=== PATIENT | male | born 1955 | race Caucasian/White ===

== ENCOUNTER 2020-10-29 00:54 | Day surgery (SDC) | payer MEDICARE, SELFPAY ==
[2020-10-16 12:40] VITALS: BMI 29.9
--- NOTE | 2020-10-28 12:07 | WPDANESEPPF ---
Anes - Initial Pre Proc Eval Procedure: Operation Date: 10/29/20 08:00 Proposed Procedures p Screening Colonoscopy - Cuong Arce MD Date/Time: 10/28/20 12:07 Surgeon: Cuong Arce MD Pre Op Diagnosis: hx of colon polyps Z86.010 Patient Data Age: 65 Gender: M Height: 1.88 m Weight: 106 kg Allergies Allergy/AdvReac Type Severity Reaction Status Date / Time amoxicillin Allergy Unknown Rash Verified 10/29/20 06:36 rivaroxaban Allergy Unknown Bleeding Verified 10/29/20 06:36 Home Medications Medication Instructions Recorded Confirmed Type aspirin 325 mg tablet 325 mg PO DAILY 01/05/19 10/29/20 History metoprolol tartrate 25 mg tablet 50 mg PO DAILY tablet 07/10/19 10/29/20 History atorvastatin 10 mg tablet 10 mg PO DAILY #90 tablet 06/20/20 10/29/20 Rx Patient hx anesthesia problems: none Family hx anesthesia problems: none PMFSH Past Medical History Medical History Afib Allergic rhinitis Anemia Essential (primary) hypertension Pure hypercholesterolemia Wears glasses Surgical History Surgical History Presence of right artificial knee joint S/P ablation operation for arrhythmia Family History Family History Father Malignant neoplasm of prostate Patient's father is in good health Sibling Patient's sister is in good health Patient's brother is in good health Social History Social History Smoking status: Never smoker Second hand tobacco smoke exposure: No Alcohol intake: current Drinks per week: 4 Alcohol use details: socially Substance use: never Substance use type: does not use Living arrangements: with family Gender identity (if verbalized by the patient): Male Spiritual care concerns: No Anes - Eval Final PreProcedure Day of Procedure 10/28/20 12:07 Patient weight: obese Heart: regular rate and rhythm Lungs: clear to auscultation and normal air movement Airway: Mallampati scale class II Neurological: alert and oriented Last oral intake: >/= 8 hours ASA classification: III Emergent: no Anesthetic plan: proceed Anesthesia type and monitoring: general GIVS and standard monitoring Informed Consent: The patient's anesthetic plan and its attendant risks and benefits were discussed with the patient/family/POA. Questions were solicited and answers provided to the satisfaction of the patient/family/POA.
--- NOTE | 2020-10-28 15:39 | PM.HPGS ---
History of Present Illness History of Present Illness Consent: Risks, benefits, and alternatives have been discussed and questions answered. Patient agrees to proceed with procedure. Chief complaint: hx of colon polyps Z86.010 Narrative: Michael Carbajal is a 65 year old male with a history of colon polyps here for colon cancer screening. His father had polyps and prostate cancer. Review of Systems Review of Systems: All systems reviewed & are unremarkable except as noted in HPI and below PMFSH Past Medical History Medical History Afib Allergic rhinitis Anemia Essential (primary) hypertension Pure hypercholesterolemia Wears glasses Surgical History Surgical History Presence of right artificial knee joint S/P ablation operation for arrhythmia Family History Family History Father Malignant neoplasm of prostate Patient's father is in good health Sibling Patient's sister is in good health Patient's brother is in good health Social History Social History Smoking status: Never smoker Second hand tobacco smoke exposure: No Alcohol intake: current Drinks per week: 4 Alcohol use details: socially Substance use: never Substance use type: does not use Living arrangements: with family Gender identity (if verbalized by the patient): Male Spiritual care concerns: No Meds Home Medications and Allergies Home Medications Medication Instructions Recorded Confirmed Type aspirin 325 mg tablet 325 mg PO DAILY 01/05/19 10/29/20 History metoprolol tartrate 25 mg tablet 50 mg PO DAILY tablet 07/10/19 10/29/20 History atorvastatin 10 mg tablet 10 mg PO DAILY #90 tablet 06/20/20 10/29/20 Rx Allergies Allergy/AdvReac Type Severity Reaction Status Date / Time amoxicillin Allergy Unknown Rash Verified 10/29/20 06:36 rivaroxaban Allergy Unknown Bleeding Verified 10/29/20 06:36 Exam Const: General: alert Orientation/consciousness: patient oriented x3 Resp: Auscultation: clear to auscultation bilaterally Cardio: Rhythm: regular rhythm GI: GI Palp: Yes Soft to palpation and No Tenderness to palpation present (GI) Neuro: General: patient oriented x3 Assessment and Plan Assessment and plan (1) Colon cancer screening: Code(s): Z12.11 - Encounter for screening for malignant neoplasm of colon Status: Acute Assessment and Plan: Colonoscopy with possible biopsy or polypectomy or cautery or injection of substances.
[2020-10-29 06:37] VITALS: BP 125/74; PULSE 96; RESP 18; TEMP 36.3; O2SAT 97
[2020-10-29] MEDS: LACTATED RINGERS 1,000 ML 150 ML IV CONT (06:40)
[2020-10-29 07:46] VITALS: BP 116/71; PULSE 83; RESP 27; O2SAT 95
[2020-10-29 07:56] VITALS: BP 120/70; PULSE 79; RESP 24; O2SAT 96
[2020-10-29 08:06] VITALS: BP 139/75; PULSE 80; RESP 22; O2SAT 96
== END 2020-10-29 08:15 | disposition home or self-care (01) ==
PROVIDERS: PCP Family Medicine; Visit Provider Internal Medicine Gastroenterology
PROC: 0DJD8ZZ Inspection of Lower Intestinal Tract, Via Natural or Artificial Opening Endoscopic (ICD-10-PCS; CPT 45378; principal; 2020-10-29 08:00)
DX: Z12.11 Encounter for screening for malignant neoplasm of colon (principal); D12.0 Benign neoplasm of cecum; K57.30 Diverticulosis of large intestine without perforation or abscess without bleeding; I48.91 Unspecified atrial fibrillation; I10 Essential (primary) hypertension; E78.00 Pure hypercholesterolemia, unspecified; D64.9 Anemia, unspecified; Z79.82 Long term (current) use of aspirin; E66.9 Obesity, unspecified; Z68.31 Body mass index [BMI] 31.0-31.9, adult
CPT/HCPCS: 45385; 88305; J2704; J7120

== ENCOUNTER → 2021-06-25 08:00 | Outpatient (CLI) | payer MEDICARE, SELFPAY ==
--- NOTE | ~2021-06-25 | XR_ITS ---
EXAMINATION: XR finger 3rd RT min 2V INDICATION: Right third finger pain and stiffness TECHNIQUE: Three views of the right third finger are obtained. COMPARISON: None available FINDINGS: There is mild osteoarthritis of the interphalangeal joints and metacarpophalangeal joint. T here is no fracture. The soft tissues are normal. IMPRESSION: 1. Mild osteoarthritis. Reviewed, dictated and finalized at location A. IMPRESSION: 1. Mild osteoarthritis.
--- NOTE | ~2021-06-25 | XR_ITS ---
EXAMINATION: XR hand RT 2V INDICATION: Right hand pain TECHNIQUE: Two views of the right hand are obtained. COMPARISON: None available FINDINGS: There is mild to moderate osteoarthritis involving multiple interphalangeal joints. No frac ture is identified. The soft tissues are normal. IMPRESSION: 1. 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 Reviewed, dictated and finalized at location A. IMPRESSION: 1. Mild to moderate polyarticular osteoarthritis involving multiple interphalan geal joints.
== END ==
PROVIDERS: PCP Family Medicine; Visit Provider Physician Assistant
DX: M19.041 Primary osteoarthritis, right hand (principal)
CPT/HCPCS: 73120; 73140

== ENCOUNTER 2021-07-29 14:21 | Outpatient (CLI) | payer MEDICARE, SELFPAY ==
--- NOTE | ~2021-07-29 | MR_ITS ---
EXAMINATION: MR brain IAC wo/w con DATE: 07/29/2021 15:33 INDICATION: Tinnitus. Sudden left-sided hearing loss. TECHNIQUE: Magnetic resonance imaging (MRI) of the brain, brainstem, and internal auditory canals was performed without and with 20 mL MultiHance intravenous contrast. COMPARISON: None. FINDINGS: There are scattered areas of nonspecific increased T2-weighted signal intensity in the cere bral white matter, which is within normal limits for the patient's age. In the right posterior midbra in, there is a 10 mm mass of increased T2-weighted signal intensity with mild enlargement of the righ t posterior midbrain. No contrast enhancement. There is no acute ischemic infarct or intracranial hem orrhage. The ventricles are normal in size. The orbits are normal. There is mild mucosal thickening i n the paranasal sinuses. The internal auditory canals and inner and middle ears are normal. There is a trace right mastoid effusion. IMPRESSION: 1. 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 Reviewed, dictated and finalized at location B. IMPRESSION: 1. 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
[2021-07-29 14:59] LABS: Estimated Glomerular Filt Rate > 60
== END 2021-07-29 14:22 | disposition home or self-care (01) ==
PROVIDERS: PCP Family Medicine; Visit Provider Otolaryngology
DX: H93.19 Tinnitus, unspecified ear (principal)
CPT/HCPCS: 70553; A9577

== ENCOUNTER 2022-08-19 13:09 | Outpatient (RCR) | payer MEDICARE, SELFPAY ==
--- NOTE | 2022-08-09 09:14 | PCPTNOTE ---
Patient called & cancelled scheduled appointment this date due to being sick
--- NOTE | 2022-08-19 14:13 | PTOPEVDC ---
Assessment and note entered by Patel Natarajan, PT Thank you for referring Michael Carbajal to [facility].? An evaluation has been completed. No further treatment is needed. Evaluation Information Assessment Status Evaluation Diagnosis Aural Vertigo Onset 4 months ago Subjective Information Patient reports having hearing issues including decreased hearing and tinnitus for 25 years. Recently found out he has a tumor and 4 months ago was just looking up after looking up and having a violent episode of dizziness with N/V. Patient has had multiple other episodes since then none as bad as the first incident, but two resulting in N /V. Patient has been trying to keep track of any triggers and cannot come up with any. (Although it does seem like quick unexpected motions might being doing something.). Reported Pain Level Pain Score 0: Self Report Assessment PT Clinical Summary Michael is a 67 year old male coming into the clinic with a diagnosis of Aural Hearing. The patient had negative Astatula-Hallpike to L and R, no nystagmus with any visual testing and has acceptable balance tests only having loss of balance with eyes closed single limb stance and closed eyes tandem stance. Unable to provoke any dizziness at this time. Patient has sounds like VNG test planned at [place] although no date is set in stone . Recommend no further physical therapy at this time. Plan of Care PT Services Indicated No Treatment Frequency and Discharged from skilled physical therapy. Duration
== END 2022-08-20 14:17 | disposition home or self-care (01) ==
LOC: ANHPT 13:09
PROVIDERS: PCP Family Medicine; Visit Provider Otolaryngology
DX: H81.319 Aural vertigo, unspecified ear (principal); H93.12 Tinnitus, left ear; H90.2 Conductive hearing loss, unspecified
CPT/HCPCS: 97161

== ENCOUNTER 2023-09-18 09:24 | Emergency (ER) | payer MEDICARE, SELFPAY ==
--- NOTE | ~2023-09-18 | XR_ITS ---
Clinical Indication: Syncopal AP and lateral views of the chest: Comparison: 03/04/2015 Findings: The lungs are clear, without evidence of focal consolidation or pleural effusion. Cardiome diastinal silhouette is within normal limits. Bones and soft tissues are unremarkable. Impression: Normal chest. Reviewed, dictated and finalized at location . Impression: Normal chest.
--- NOTE | ~2023-09-18 | CT_ITS ---
Non-contrast Head CT History: Syncope Technique: Axial non-contrast imaging of the brain was performed. Dose reduction technique was used on this scan by utilizing automated exposure control and iterative reconstruction technique. The dose -length product (DLP) was 681.00 mGy-cm. Findings: There is no evidence of intracranial hemorrhage, mass lesion, or acute infarct. Brain par enchyma appears normal. The ventricles and subarachnoid spaces are normal in size. The calvarium ap pears normal. The visualized paranasal sinuses and mastoid air cells are clear. Impression: No significant abnormality seen. Reviewed, dictated and finalized at location . Impression: No significant abnormality seen.
--- NOTE | ~2023-09-18 | CT_ITS ---
Noncontrast CT scan of the cervical spine Technique: Multiple contiguous axial [address] images of the cervical spine were obtained and rec onstructed in 2D sagittal and coronal planes on the acquisition scanner. Dose reduction technique was used on this scan by utilizing automated exposure control, adjustment of the mA and/or kV according to patient size. The dose-length product (DLP) was 481.16 mGy-cm. Clinical History: Pain Findings: No fractures or dislocations. There are mild degenerative disc changes, especially at C4-C 5, C5-C6, and C6-C7. There are mild disc osteophyte complexes at C4-C5, C5-C6, and C6-C7. No preverte bral soft tissue swelling. Impression: No fracture or subluxation of the cervical spine. Mild degenerative change. Reviewed, dictated and finalized at [facility]. Impression: No fracture or subluxation of the cervical spine. Mild degenerative change.
--- NOTE | ~2023-09-18 | XR_ITS ---
Left wrist Technique: PA, oblique, lateral, and ulnar deviation views were obtained. Clinical History: Pain Findings: No acute fracture or dislocation is seen. Osseous alignment is anatomic. Joint spaces are p reserved. Soft tissues are unremarkable. Impression: Unremarkable left wrist radiographs. Reviewed, dictated and finalized at location . Impression: Unremarkable left wrist radiographs.
[2023-09-18 09:19] VITALS: BP 154/83; PULSE 60; RESP 16; TEMP 36.6; O2SAT 99
--- NOTE | 2023-09-18 09:34 | ECG_ITS ---
Test Date: 2023-09-18 09:27:50 Measurements Intervals [place] Rate: 60 P: 6 LA: 157 QRS: 20 QRSD: 102 T: 16 QT: 408 QTc: 408 Interpretive Statements SINUS RHYTHM POSSIBLE LEFT VENTRICULAR HYPERTROPHY [VOLTAGE CRITERIA PLUS LAE OR QRS WIDENING] BORDERLINE ECG No previous ECG available for comparison Electronically Signed On 09-19-2023 14:48:07 CDT by Nirmal Kwon M.D.
[2023-09-18 09:52] LABS: Basophils Absolute Auto 0.1 K/mm3 (0.0-0.1); Basophils Percent Auto 0.8 % (0.2-1.2); Eosinophils Percent Auto 0.5 % (0-4.4); Hematocrit 38.8 % (42.0-52.0); Hemoglobin 13.1 g/dL (14.0-18.0); Immature Granulocyte Absolute 0.05 K/mm3 (0.00-0.031); Immature Granulocyte Percent A 0.6 % (0-0.5); Lymphocytes Absolute Auto 1.93 K/mm3 (0.9-3.2); Lymphocytes Percent Auto 21.9 % (18.3-44.2); Mean Corpuscular HGB Conc 33.8 g/dl (32-36); Mean Corpuscular Hemoglobin 30.7 pg (26-34); Mean Corpuscular Volume 90.9 fl (80-100); Mean Platelet Volume 9.8 fl (7.4-10.4); Monocytes Absolute Auto 0.8 K/mm3 (0.1-0.6); Monocytes Percent Auto 8.7 % (2.6-8.5); Neutrophils Percent Auto 67.5 % (45.5-73.1); Platelet Count Result 339 k/mm3 (150-375); Red Blood Count 4.27 M/mm3 (4.6-6.20); Red Cell Distribution Width 13.1 % (11.5-14.5); White Blood Count 8.8 K/mm3 (4.5-10.0)
[2023-09-18 10:05] LABS: Alanine Aminotransferase 34 U/L (6-50); Alkaline Phosphatase 75 U/L (38-126); Anion Gap 9 mmol/L (4-12); Aspartate Amino Transferase 29 U/L (17-59); Bilirubin,Total 0.7 mg/dL (0.2-1.3); Blood Urea Nitrogen 22 mg/dL (9-20); Calcium 9.2 mg/dL (8.4-10.2); Carbon Dioxide 26 mmol/L (22-30); Chloride 105 mmol/L (98-107); Estimated CRCL calculation 84 ml/min; Estimated Glomerular Filt Rate > 60; Glucose 114 mg/dL (65-110); Potassium 3.3 mmol/L (3.4-5.0); Sodium 140 mmol/L (137-145)
[2023-09-18 11:54] VITALS: BP 137/83; PULSE 60; RESP 15; O2SAT 94
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
== END 2023-09-18 12:38 | disposition home or self-care (01) ==
PROVIDERS: Emergency Provider Emergency Medicine; PCP Family Medicine
DX: S06.0X0A Concussion without loss of consciousness, initial encounter (principal); S63.502A Unspecified sprain of left wrist, initial encounter; S00.81XA Abrasion of other part of head, initial encounter; S00.31XA Abrasion of nose, initial encounter; S40.812A Abrasion of left upper arm, initial encounter; S40.811A Abrasion of right upper arm, initial encounter; H81.09 Meniere's disease, unspecified ear; I48.91 Unspecified atrial fibrillation; I10 Essential (primary) hypertension; E78.00 Pure hypercholesterolemia, unspecified; D64.9 Anemia, unspecified; Z96.651 Presence of right artificial knee joint; R94.31 Abnormal electrocardiogram [ECG] [EKG]; Z79.811 Long term (current) use of aromatase inhibitors; Z79.82 Long term (current) use of aspirin; Z79.899 Other long term (current) drug therapy; V18.4XXA Pedal cycle driver injured in noncollision transport accident in traffic accident, initial encounter; Y93.55 Activity, bike riding
CPT/HCPCS: 36415; 70450; 71046; 72125; 73110; 80053; 85025; 93005; 99284

== ENCOUNTER 2024-10-18 08:35 | Emergency (ER) | payer MEDICARE, SELFPAY ==
[2024-10-18 09:10] VITALS: BP 144/99; PULSE 70; RESP 16; TEMP 36.6; O2SAT 97
--- NOTE | 2024-10-18 10:12 | ED.BACK ---
HPI - Back Pain/Injury General Chief Complaint: Back Pain/Injury Stated Complaint: Back Pain Time Seen by Provider: 10/18/24 10:12 Source: patient Mode of arrival: ambulatory Limitations: no limitations History of Present Illness HPI Narrative: 69 eye male presented for complaint of pain across the lower back for 2 weeks. Denies known injury. He says he did lift a headboard into a truck prior to the onset but denies feeling any pain at the time, and says this is not unusual activity for him. Pain is worse when changing positions from sitting to standing. Rates 08/23. Has been taking ibuprofen without improvement. Last night he took his 's muscle relaxer, also denies improvement. Denies pain radiating into the hips or legs, numbness, tingling, weakness of the lower extremities, or change in gait, saddle paresthesia or loss of bowel or bladder. Related Data Home Medications ?Medication ?Instructions ?Recorded ?Confirmed ?Last Taken ?Type aspirin 325 mg tablet 325 mg PO DAILY 01/05/19 10/18/24 Unknown History metoprolol tartrate 25 mg tablet 50 mg PO DAILY 07/10/19 10/18/24 Unknown History anastrozole 1 mg tablet mg 10/18/24 Unknown History metformin 500 mg tablet,extended mg PO 10/18/24 Unknown History release 24 hr rosuvastatin 5 mg tablet mg 10/18/24 Unknown History triamterene 37.5 cap 10/18/24 Unknown History mg-hydrochlorothiazide 25 mg capsule Allergies Allergy/AdvReac Type Severity Reaction Status Date / Time amoxicillin Allergy Unknown Rash Verified 10/18/24 09:31 rivaroxaban Allergy Unknown Bleeding Verified 10/18/24 09:31 Review of Systems Review of Systems: CONSTITUTIONAL: Denies body aches, fever, chills EYES: Denies visual changes CARDIOVASCULAR: Denies chest pain, palpitations, or edema. RESPIRATORY: Denies cough or dyspnea. GASTROINTESTINAL: Denies abdominal pain, nausea, vomiting, or diarrhea. SKIN: Denies rash, itching, or wounds. MUSCULOSKELETAL: reports back pain NEUROLOGIC: Denies headache, numbness, tingling, or weakness. All systems reviewed & are unremarkable except as noted in HPI and below PMFSH Past Medical History Medical History Anemia Afib Wears glasses Allergic rhinitis Essential (primary) hypertension Pure hypercholesterolemia Surgical History Surgical History S/P ablation operation for arrhythmia Presence of right artificial knee joint Family History Family History Father Malignant neoplasm of prostate Patient's father is in good health Sibling Patient's sister is in good health Patient's brother is in good health Social History Social History Smoking status: Never smoker Second hand tobacco smoke exposure: No Alcohol intake: current Drinks per week: 4 Alcohol use details: socially Substance use: never Substance use type: does not use Living arrangements: with family Occupation/Education: occupation Gender identity (if verbalized by the patient): Male Sexual Orientation (if Verbalized by the Patient): Straight or Heterosexual Spiritual care concerns: No Comments At time of signature, I have reviewed and agree with nursing past medical, surgical, social and family history unless otherwise noted. Please see nursing chart for further information. There is no relevant family history pertinent to the presenting complaint Exam Narrative: GENERAL: Well-appearing, well-nourished, and in no acute distress. NECK: Supple. full ROM CHEST: Speaks in full sentences. No respiratory distress. HEART: Regular rate and rhythm. Normal and equal peripheral pulses. MUSC: No Vertebral point tenderness. Nontender paraspinal muscles. Mild tenderness to bilateral hips with deep palpation c/w SI joints. BLEs with normal strength and sensation, normal range of motion, No open wounds, alignment normal, pulse palpable and equal bilaterally, skin warm, dry, pink. Capillary refill less than 3 seconds. Gait steady. SKIN: Warm, dry, no rash. NEURO: Alert and oriented x3. Course Course Emergency Course: Patient is aware of diagnosis, understands and agrees to treatment plan. Anticipatory guidance given. Patient agrees to follow-up as directed and is aware of reasons to seek care at the emergency department. Portions of this record may have been created with voice recognition software Level of Care: Express Care Visit Vital Signs Vital signs: Vital Signs Temperature 97.8 F 10/18/24 09:10 Pulse Rate 70 10/18/24 09:10 Respiratory Rate 16 10/18/24 09:10 Blood Pressure 144/99 H 10/18/24 09:10 Pulse Oximetry 97 10/18/24 09:10 Oxygen Delivery Room Air 10/18/24 09:10 Temperature 97.8 F 10/18/24 09:10 Pulse Rate 70 10/18/24 09:10 Respiratory Rate 16 10/18/24 09:10 Blood Pressure 144/99 H 10/18/24 09:10 Pulse Oximetry 97 10/18/24 09:10 Oxygen Delivery Room Air 10/18/24 09:10 Reviewed MDM - Back Pain/Injury MDM Narrative Medical decision making narrative: Pt with pain across low semaj; Xray was ordered, however staff was unable to perform the test within 45 minutes of ordering, so pt elected to leave and f/u with pcp Advised supportive measures and s/s to go to the ER. Pt is stable and appropriate for outpt treatment and follow up with pcp. Differential Diagnosis Differential diagnosis: Likely lumbar radiculopathy, sciatica, strain of lumbar region, renal colic, pyelonephritis and discitis Discharge Plan Discharge Clinical Impression: Low back pain Patient Disposition: Home Condition: Stable Instructions: Acute Low Back Pain (ED) Additional Instructions: Avoid lifting. pushing. pulling, or anything that worsens the pain. Walking and other gentle exercising several times a week has been shown to improve back pain; bed rest is not recommended. Take Tylenol 1000mg every 8 hours Take muscle relaxers every 8 hours as needed for muscle spasm- do not drive or make any important decisions while on this medication for it can make you drowsy. Over the counter pain cream like icy/hot or biofreeze, or Salon pas/lidocaine 4% patch. You may apply heat or cold to the area as needed. please go to ER If you experience any worsening pain, swelling, numbness, weakness, problems with bladder or bowel function, weakness or loss of feeling in one or both of your legs, or any other serious concerns. Please follow up with your Primary Care Doctor within 48-72 hours - call for an appointment. Patient Language: Georgian Prescriptions: New cyclobenzaprine 10 mg tablet 10 mg PO TID PRN (Reason: muscle spasm) Qty: 12 0RF methylprednisolone [Medrol ([place])] 4 mg tablets,dose pack See Rx Instructions .ROUTE .COMPLEX Qty: 21 0RF Rx Instructions: orally per package directions No Action anastrozole 1 mg tablet triamterene-hydrochlorothiazid 37.5-25 mg capsule metformin 500 mg tablet extended release 24 hr PO rosuvastatin 5 mg tablet aspirin 325 mg tablet 325 mg PO DAILY metoprolol tartrate 25 mg tablet 50 mg PO DAILY atorvastatin [Lipitor] 10 mg tablet 10 mg PO DAILY Qty: 90 1RF Follow-up/Referrals: Demarcus Colby MD [Primary Care Provider, Family Practice] Time of Disposition: 11:04
== END 2024-10-18 11:07 | disposition home or self-care (01) ==
PROVIDERS: Emergency Provider Nurse Practitioner Family; PCP Family Medicine
DX: M54.50 Low back pain, unspecified (principal); I48.91 Unspecified atrial fibrillation; I10 Essential (primary) hypertension; E78.00 Pure hypercholesterolemia, unspecified; Z96.651 Presence of right artificial knee joint; Z79.82 Long term (current) use of aspirin
CPT/HCPCS: 99213; G0463

== ENCOUNTER 2024-10-19 08:34 | Outpatient (CLI) | payer MEDICARE, SELFPAY ==
--- NOTE | ~2024-10-19 | XR_ITS ---
EXAMINATION: XR lumbar spine 2-3V DATE: 10/19/2024 09:26 INDICATION: Low back pain TECHNIQUE: 3 images of the lumbar spine were obtained COMPARISON: None. FINDINGS: There is bowel gas and stool projecting over the pelvis which limits evaluation. There are a few less than 1.0 cm calcifications projecting over the pelvis which may represent phleboliths, however, a distal ureteral stone or bladder stone or possible. No compression fracture in the lumbar spine. Alignment is within normal limits in the lumbar spine. Mild degenerative change in the mid and lower lumbar facet joints. IMPRESSION: 1. Mild degenerative change in the mid and lower lumbar spine. If symptoms persist or worsen, consider an MRI of the lumbar spine for further assessment. Reviewed, dictated and finalized at location Q.
== END 2024-10-19 08:35 | disposition home or self-care (01) ==
PROVIDERS: PCP Family Medicine; Visit Provider Physician Assistant Medical
DX: M51.369 Other intervertebral disc degeneration, lumbar region without mention of lumbar back pain or lower extremity pain (principal)
CPT/HCPCS: 72100

== ENCOUNTER 2024-11-01 11:33 | Emergency (ER) | payer MEDICARE, SELFPAY ==
--- NOTE | ~2024-11-01 | CT_ITS ---
EXAMINATION: CT lumbar spine wo con DATE: 11/01/2024 13:39 INDICATION: Low back pain radiating down the right leg TECHNIQUE: Computed tomography (CT) of the lumbar spine was performed without intravenous contrast. Automated exposure control and iterative reconstruction technique were employed. The dose-length product was 1349.31 mGy-cm. COMPARISON: Lumbar spine radiographs dated 10/19/2024 FINDINGS: 12 degrees lumbar levoscoliosis. Sagittal alignment is normal. Schmorl's nodes along the inferior endplate of L2 in the superior endplates of L5 and S1. Vertebral body heights are otherwise normal. No acute fracture. Mild disc height loss at L4-L5 and mild right-sided disc height loss at L2-L3 and L3-L4. Paravertebral soft tissues are unremarkable. The following disc levels are specifically discussed: T11-T12: The disc does not extend beyond the endplate margin. There is mild bilateral facet joint osteoarthritis. There is no neural foraminal stenosis. There is no central canal stenosis. T12-L1: The disc does not extend beyond the endplate margin. There is mild bilateral facet joint osteoarthritis. There is no neural foraminal stenosis. There is no central canal stenosis. L1-L2: Disc is mildly bulging. There is mild bilateral facet joint osteoarthritis. There is mild bilateral neural foraminal stenosis. There is no central canal stenosis. L2-L3: Disc is mildly bulging. There is mild bilateral facet joint osteoarthritis. There is moderate bilateral neural foraminal stenosis. There is mild central canal stenosis. L3-L4: Disc is bulging. There is mild bilateral facet joint osteoarthritis. There is moderate right and mild to moderate left neural foraminal stenosis. There is mild central canal stenosis. L4-L5: Disc is bulging. There is mild bilateral facet joint osteoarthritis. There is mild right and mild to moderate left neural foraminal stenosis. There is mild central canal stenosis. L5-S1: Disc is mildly bulging. There is moderate left and severe right facet joint osteoarthritis. There is mild left and minimal right neural foraminal stenosis. There is no central canal stenosis. IMPRESSION: 1. 12 degrees lumbar levoscoliosis with mild spondylosis. Reviewed, dictated and finalized at location A.
[2024-11-01 11:44] VITALS: BP 158/101; PULSE 65; RESP 16; TEMP 36.6; O2SAT 96
--- OUTSIDE RECORDS SUMMARY | 2024-11-01 11:57 | XMS_ITS | Clinical Summary ---
Author Organization [facility] Address [address] [place] [address] Care Team Providers Care Hotel Concierge Name Role Phone Unavailable Primary Care Provider Unavailabl e Source Comments [facility],non-owned Affiliates and Associated Physician Practices is amultiple site organization consisting of ambulatory clinics and hospital sitesin [place], [place] and [place]. This disclosure is being madepursuant to the Care Everywhere program and may not contain all information available regarding this patient. Last updated 17.[facility] Social & Loyal Allergies No known active allergies Immunizations Immunization Administration Dates Next Due INFLUENZA VACCINE, QUADR. (F LUZONE; FLULAVAL; FLUARIX; AFLURIA QUADRIVALENT; 6MO+), 0.5 ML (IIV4) 12/14/2018 Social History Tobacco Use Types Packs/Day Years Used Date Smoking Tobacco: Never Assessed Sex and Gender Information Value Date Recorded Sex Assigned at Not on file Legal Sex Male 9:48 AM CDT Gender Identity Not on file Sexual Orientation Not on file Plan of Treatment Health Maintenance Due Date Last Done Comments COLOGUARD (AGES 45-75) - COL ON CA SCREENING 1955 COLON MONITORING 1955 COLONOSCOPY - COLON CA SCREENING 1955 CT COLONOGRAPHY - COLON CA SCREENING 1955 Colorectal Cancer Screening 1955 FIT - COLON CA SCREENING 1955 FLEX SIG - COLON CA SCREENING 1955 LIPID TESTING 1955 HEPATITIS C SCREENING 05/08/1973 DTAP/TDAP/TD VACCINES (1 - Tdap) 05/12/1974 PNEUMOCOCCAL VACCINE 50+ (1 of 1 - PCV) 05/12/2005 ZOSTER VACCINE (1 of 2) 05/12/2005 DEPRESSION SCREENING 02/15/2024 COVID-19 VACCINE (1 - 2023-2 5 season) 2024 INFLUENZA VACCINE (#1) 2024 12/14/2018 Respiratory Syncytial Virus (RSV) Vaccine Pt: or over 60 yrs (1 - 1-dose 75+ series) 05/12/2030 HEPATITIS B VACCINE Aged Out No longe r eligible based on patient's age to complete this topic HIB VACCINE Aged Out No longer eligi ble based on patient's age to complete this topic HPV VACCINE Aged Out No longer eligi ble based on patient's age to complete this topic MENINGOCOCCAL (Group B) VACC INE SHARED DECISION-MAKING Aged Out No longer eligibl e based on patient's age to complete this topic MENINGOCOCCAL GROUPS A/C/Y/W VACCINE Aged Out No longer eligible b ased on patient's age to complete this [place] [address] [address] [facility] [address] [place] [address] [address] MEDICARE
--- OUTSIDE RECORDS SUMMARY | 2024-11-01 11:57 | XMS_ITS | Clinical Summary ---
Author Organization [facility] [address] Address [address] [place] [address] Care Team Providers Care Workers Compensation Manager Name Role Phone Demarcus Colby MD Primary Care Provider Demarcus Guerrero MD Unavailable [phone] Allergies Active Allergy Reactions Criticality Noted Date Comments Amoxicillin Rash Medium 07/12/2018 Rivaroxaban Other (See comments) High 07/12/2018 Had diffuse bleeding after knee replacement surgery. Had diffuse bleeding after knee replacement surgery. Medications atorvastatin (LIPITOR) 10 mg tablet TK 1 T PO QD 2 06/22/19 19 Active metoprolol (LOPRESSOR) 50 mg tablet Take 1 tablet (50 mg total) by mouth 2 (two) times a day 60 tablet 11 08/24/19 19 Active aspirin 325 mg enteric coated tablet Take 1 tablet (325 mg total) by mouth daily 30 tablet 11 08/24/19 19 Active Additional Information Patient taking differently: 81 mgoral Daily, Reported on 09/09/2021 ondansetron ODT (ZOFRAN-ODT) 4 mg disintegrating tablet Take 1 tablet (4 mg total) by mouth every 8 (eight) hours as needed for nausea or vomiting 20 tablet 1 02/04/20 23 Active LORazepam (Ativan) 1 mg tablet Take 1 tablet (1 mg total) by mouth every 8 (eight) hours as needed (vertigo) 30 tablet 3 09/21/19 24 Active triamterene-hydroC HLOROthiazide 37.5-25 mg per tablet/capsule Take 1 tablet/capsule by mouth daily 30 tablet/capsu le 11 01/31/20 24 025 Active rosuvastatin (CRESTOR) 5 mg tablet TAKE 1 TABLET BY MOUTH EVERY DAY FOR CHOLESTEROL 03/27/19 25 Active betahistine Take 1 capsule (8 mg total) by mouth 3 (three) times a day 90 capsule 11 07/19/19 25 026 Active Active Problems Problem Noted Date Diagnosed Date 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 [facility] [address] [place] [address] Asymmetrical sensorineural hearing loss (Primary Dx); Pressure sensation in both ears 08/14/2024 8:00 AM CDT Office Visit [facility] Otolaryngology [address] [place] [address] JuliennewJoselo MD Meniere's disease of left ear (Primary Dx); Asymmetrical sensorineural hearing loss from Last 3 Months Immunizations Immunization Administration Dates Next Due Influenza, Quadrivalent, Hig h Dose, Preservative Free, Intrr 11/15/2020 Influenza, Quadrivalent, Spl it, Preservative Free, Intramuscular 12/05/2019,12/14/2018,12/09/2017,12/08 Influenza, Trivalent, IM (MDV) 01/01/2019 Influenza, Trivalent, Preser vative Free, Intramuscular 12/31/2015 Pneumococcal Polysaccharide PPV23 11/15/2020 Tdap 07/06/2017,07/05/2017 ZOSTER Recombinant 01/14/2021,11/15/2020 Surgical History Surgery Date Site/Laterality Comments TOTAL KNEE ARTHROPLASTY 11/14/2017 - 12/14/2017 KNEE SURGERY Bilateral 2 on each side CARDIAC ELECTROPHYSIOLOGY ST UDY AND ABLATION COLONOSCOPY 2 years Medical History Medical History Date Comments Hypertension Hyperlipidemia Glioma (HCC) Atrial fibrillation (HCC) Tinnitus 20+ years HL (hearing loss) 20+ years Ear problems 20+ years Family History Medical History Relation Name Comments No Known Problems Brother Cancer Father Michael Cancer Mother Lizett Diabetes Mother Lizett Cancer Paternal Grandfather Michael No Known Problems Sister 1 No Known Problems Sister 2 Relation Name Status Comments Brother Alive Father Michael (Age 80) Mother Lizett (Age 66) Paternal Grandfather Michael Sister 1 Alive Sister 2 Alive Social History Tobacco Use Types Packs/Day Years Used Date Smoking Tobacco: Never Smokeless Tobacco: Never Tobacco Cessation:Counseling Given: Not Answered Alcohol Use Standard Drinks/Week Comments Yes 7 (1 standard drink = 0.6 oz pur e alcohol) AUDIT-C Answer Date Recorded Q1: How often do you have a drink containing alc ohol? 2-4 times a month 09/09/2021 Q2: How many drinks containi ng alcohol do you have on a typical day when you are drinking? 3 or 4 09/09/2021 Q3: How often do you have si x or more drinks on one occasion? Monthly 09/09/2021 Sex and Gender Information Value Date Recorded Sex Assigned at Not on file Legal Sex Male 2:15 PM AREA CLEANER Gender Identity Not on file Sexual Orientation Not on file Obstetrics History Last Filed Vital Signs Vital Sign Reading Time Taken Comments Blood Pressure 146/90 04/16/2022 8:50 AM AREA CLEANER Pulse 59 04/16/2022 8:50 AM AREA CLEANER Temperature - - Respiratory Rate - - Oxygen Saturation 96% 09/02/2021 9:59 AM CDT Inhaled Oxygen Concentration - - Weight 107.5 kg (237 lb) 04/16/2022 8:50 AM AREA CLEANER Height 188 cm (6' 2) 09/09/2021 8:41 AM CDT Body Mass Index 30.43 09/09/2021 8:41 AM CDT Plan of Treatment Health Maintenance Due Date Last Done Comments Colon Cancer Screening-Colonoscopy 1955 Depression Screening 1955 Fall Risk Assessment 1955 Hepatitis C Screening 1955 Prostate Cancer Screening-PSA 1955 Hepatitis B Screening 05/12/1973 Well Visit 65+ 05/12/2020 Pneumococcal vaccine 65+ (2 of 2 - PCV) 11/15/2021 11/15/2020 Covid-19 Vaccine (2024-2 6 season) 2024 07/20/2021, 11/14/2020, 05/06/2020, Additional history exists Influenza Vaccine (#1) 2024 , 12/05/2019, 01/01/2019, Additional history exists DTaP/Tdap/Td Vaccine (3 - Td or Tdap) 07/07/2027 07/06/2017, 07/05/2017 Zoster Vaccine Completed 01/14/2021, 11/15/2020 Procedures Procedure Name Priority Date/Time Associated Diagnosis Comments AUDBASE RESULTS 08/14/2024 7:42 AM CDT from Last 3 Months Results * AudBase Results (08/14/2024 7:42 AM CDT) Provider Scanning AUDIOLOGY SERVICES ORDERABLES Final Result from Last 3 Months Insurance [facility] [place] [address] MEDICARE [facility] Care Teams Workers Compensation Manager Relationship Specialty Start Date End Date Demarcus Colby MD [address] [facility] [address] [place], [place] [id number] PCP - General Family Medicine 05/22/18 Demarcus Guerrero MD [address] [address] Radiation Oncologist Radiation Oncology 09/02/21
--- OUTSIDE RECORDS SUMMARY | 2024-11-01 11:57 | XMS_ITS | Clinical Summary ---
Author Organization [facility] Address [address] [facility] [place] [address] Phone Care Team Providers Care Carrier Blower Name Role Phone Demarcus Colby MD Primary Care Provider [phone] Allergies Active Allergy Reactions Criticality Noted Date Comments Amoxicillin Rash Medium 07/12/2018 Medications aspirin (Florencia Low Dose Aspirin) 81 mg Tablet, Delayed Release (E.C.) Take 1 Tablet (81 mg) by mouth daily. 30 Tablet 08/27/2021 Active atorvastatin (LIPITOR) 10 mg tablet TAKE 1 TABLET(10 MG) BY MOUTH DAILY WITH SUPPER 90 Tablet 08/31/2023 Active LORazepam (ATIVAN) 1 mg tablet Take 1 mg by mouth. 09/21/2023 Active metoprolol tartrate (LOPRESSOR) 50 mg tablet TAKE 1 TABLET(50 MG) BY MOUTH TWICE DAILY 180 Tablet 3 02/24/2024 Active atorvastatin (LIPITOR) 10 mg tablet TAKE 1 TABLET(10 MG) BY MOUTH DAILY 90 Tablet 3 02/24/2024 Active Active Problems Patient Care Coordination No te Formatting of this note migh t be different from the original. Edgar Vazquez MD-[facility] Heart and Vascular @ Jin De Paz DNP--EP MARICRUZ ([facility] Heart and Vascular @ ) Problem Noted Date Diagnosed Date PAF (paroxysmal atrial fibrillation) Encounters Date Type Department Care Team Description 10/23/2024 External Device Data STL ABSTRACTION Provider, Abstract from Last 3 Months Immunizations Immunization Administration Dates Next Due Influenza Seasonal Unspecified Formulation IM Family History Medical History Relation Name Comments No Known Problems Brother Cancer Father Cancer Mother Diabetes Mother No Known Problems Sister 1 No Known Problems Sister 2 Relation Name Status Comments Brother Alive Father Mother Sister 1 Alive Sister 2 Alive Social History Tobacco Use Types Packs/Day Years Used Date Smoking Tobacco: Never Smokeless Tobacco: Never Tobacco Cessation:Counseling Given: Not Answered Alcohol Use Standard Drinks/Week Comments Yes 0 (1 standard drink = 0.6 oz pur e alcohol) socially Sex and Gender Information Value Date Recorded Sex Assigned at Not on file Legal Sex Male 3:13 PM CDT Gender Identity Not on file Sexual Orientation Not on file Last Filed Vital Signs Vital Sign Reading Time Taken Comments Blood Pressure 130/72 02/09/2024 8:08 AM BALL MILL MIXER Pulse 63 02/09/2024 8:08 AM BALL MILL MIXER Temperature 36.2 C (97.1 F) 08/26/2020 10:59 AM CDT Respiratory Rate 16 04/08/2021 3:35 PM BALL MILL MIXER Oxygen Saturation 95% 02/09/2024 8:08 AM BALL MILL MIXER Inhaled Oxygen Concentration - - Weight 111.6 kg (246 lb) 02/09/2024 8:08 AM BALL MILL MIXER Height 188 cm (6' 2) 02/09/2024 8:08 AM BALL MILL MIXER Body Mass Index 31.58 02/09/2024 8:08 AM BALL MILL MIXER Plan of Treatment Upcoming Encounters Date Type Department Care Team (Late st Contact Info) Description 02/21/2025 8:00 AM BALL MILL MIXER Office Visit [facility] HEART AND VASCULAR EP AT [address] [place] [address] Jin De Paz, [address] [place] [address] Health Maintenance Due Date Last Done Comments Pre-Diabetes and Diabetes Screening 1955 COLORECTAL SCREENING 05/12/2000 Colorectal Cancer Screening 05/12/2000 FIT-DNA Q 3 years 05/12/2000 FIT/FOBT Q 1 year 05/12/2000 Flex Sig/CT Colonography Q 5 years 05/12/2000 PNEUMOCOCCAL VACCINE 50+ YEA RS (2 of 2 - PCV) 11/15/2021 11/15/2020 INFLUENZA VACCINE (#1) 2024 , 12/05/2019, 01/01/2019, Additional history exists DTAP/TDAP/TD VACCINES (3 - T d or Tdap) 07/07/2027 07/06/2017, 07/05/2017 RSV VACCINE (60+ or ) (1 - 1-dose 75+ series) 05/12/2030 ZOSTER VACCINE Completed 01/14/2021, 11/15/2020 Insurance MEDICARE PART A AND B [facility] [id number] Advance Directives For more information, please contact: [phone] * Full Code (Latest Code Status on File) Date Activated Date Inactivated Comments 01/31/2019 5:38 PM 02/01/2019 10:33 AM * Full Code Date Activated Date Inactivated Comments 01/31/2019 12:26 PM 01/31/2019 5:38 PM Care Teams Carrier Blower Relationship Specialty Start Date End Date Demarcus Colby MD [address] [facility] [address] [place] [address] PCP - General Family Practice 09/08/18
--- OUTSIDE RECORDS SUMMARY | 2024-11-01 11:57 | XMS_ITS | Clinical Summary ---
Author Organization [facility] Address [facility] [place] [address] Care Team Providers Care Fly Tier Name Role Phone Unavailable Primary Care Provider Unavailabl e Social History Tobacco Use Types Packs/Day Years Used Date Smoking Tobacco: Never Assessed Sex and Gender Information Value Date Recorded Sex Assigned at Not on file Legal Sex Male 6:49 PM CDT Gender Identity Not on file Sexual Orientation Not on file Plan of Treatment Health Maintenance Due Date Last Done Comments Colorectal Cancer Screening Colonoscopy (10 Years) 1955 Hepatitis C 05/12/1973 DTaP, Tdap and Td Vaccines ( 1 - Tdap) 05/12/1974 Pneumococcal Vaccine: 50+ Ye ars (1 of 1 - PCV) 05/12/2005 Zoster Vaccines (1 of 2) 05/12/2005 COVID-19 Vaccine (1 - 2023-2 5 season) 2024 RSV Immunization or 60+ Years (1 - 1-dose 75+ series) 05/12/2030 Meningococcal B Vaccine Aged Out No l onger eligible based on patient's age to complete this topic Meningococcal Vaccine Aged Out No annia santana eligible based on patient's age to complete this topic RSV Immunizations Under 20 Months Aged Out No longer eligible based on patient's age to complete this topic
[2024-11-01 13:18] VITALS: BP 168/97; PULSE 64; RESP 17; O2SAT 97
[2024-11-01 13:31] VITALS: BP 161/97; PULSE 73; RESP 18; O2SAT 94
--- OUTSIDE RECORDS SUMMARY | 2024-11-01 13:52 | XMS_ITS | Clinical Summary ---
Author Organization [facility] Address [address] [place] [address] Care Team Providers Care Stogy Roller Name Role Phone Unavailable Primary Care Provider Unavailabl e Source Comments [facility],non-owned Affiliates and Associated Physician Practices is amultiple site organization consisting of ambulatory clinics and hospital sitesin [place], [place], [place] and [place]. This disclosure is being madepursuant to the Care Everywhere program and may not contain all information available regarding this patient. Last updated 17.[facility] [employer] Allergies No known active allergies Immunizations Immunization [...] complete [place] [address] [place] [address] [place] [address] [address] MEDICARE
--- OUTSIDE RECORDS SUMMARY | 2024-11-01 13:52 | XMS_ITS | Clinical Summary ---
Author Organization [facility] Address [address] [facility] [place] [address] Phone Care Team Providers Care Information Technology Associate Name Role Phone Demarcus Colby MD Primary Care Provider [phone] Allergies Active Allergy Reactions Criticality Noted Date [...] be different from the original. Edgar Vazquez MD-[facility] Heart and Vascular @ Jin De Paz DNP--EP MARICRUZ ([facility] Heart and Vascular @ ) Problem [...] Comments Blood Pressure 130/72 02/09/2024 8:08 AM NEONATAL NURSE Pulse 63 02/09/2024 8:08 AM NEONATAL NURSE Temperature 36.2 C (97.1 F) 08/26/2020 10:59 AM CDT Respiratory Rate 16 04/08/2021 3:35 PM NEONATAL NURSE Oxygen Saturation 95% 02/09/2024 8:08 AM NEONATAL NURSE Inhaled Oxygen Concentration - - Weight 111.6 kg (246 lb) 02/09/2024 8:08 AM NEONATAL NURSE Height 188 cm (6' 2) 02/09/2024 8:08 AM NEONATAL NURSE Body Mass Index 31.58 02/09/2024 8:08 AM NEONATAL NURSE Plan of Treatment Upcoming Encounters Date Type Department Care Team (Late st Contact Info) Description 02/21/2025 8:00 AM NEONATAL NURSE Office Visit [facility] HEART AND VASCULAR EP AT [address] [place] [address] Jin De Paz, [address] [place] [address] Health Maintenance Due Date Last Done Comments [...] 11/15/2020 Insurance MEDICARE PART A AND B [facility] [id number] Advance Directives For more information, please contact: [phone] * Full Code (Latest Code Status on File) Date Activated Date Inactivated Comments 01/31/2019 5:38 PM 02/01/2019 10:33 AM * Full Code Date Activated Date Inactivated Comments 01/31/2019 12:26 PM 01/31/2019 5:38 PM Care Teams Information Technology Associate Relationship Specialty Start Date End Date Demarcus Colby MD [address] [facility] [address] [place] [address] PCP - General Family Practice 09/08/18
--- OUTSIDE RECORDS SUMMARY | 2024-11-01 13:52 | XMS_ITS | Clinical Summary ---
Author Organization [facility] Address [facility] [place] [address] Care Team Providers Care Laundry Operator Name Role Phone Unavailable Primary Care Provider [...]
--- OUTSIDE RECORDS SUMMARY | 2024-11-01 13:52 | XMS_ITS | Clinical Summary ---
Author Organization [facility] [address] Address [address] [place] [address] Care Team Providers Care Vacuum Cooker Operator Name Role Phone Demarcus Colby MD Primary Care Provider Demarcus Guerrero MD Unavailable [phone] Allergies Active Allergy Reactions Criticality Noted [...] Description 08/14/2024 8:00 AM CDT Procedure visit [facility] Ot[facility] [address] [facility] [facility] [address] [place] [address] Asymmetrical sensorineural hearing loss (Primary Dx); Pressure sensation in both ears 08/14/2024 8:00 AM CDT Office Visit [facility] Otolaryngology [address] [facility] [place] [address] JuliennewJoselo MD Meniere's disease of [...] on file Legal Sex Male 2:15 PM RECYCLABLE MATERIALS SORTER Gender Identity Not on file Sexual Orientation Not on file Obstetrics History Last Filed Vital Signs Vital Sign Reading Time Taken Comments Blood Pressure 146/90 04/16/2022 8:50 AM RECYCLABLE MATERIALS SORTER Pulse 59 04/16/2022 8:50 AM RECYCLABLE MATERIALS SORTER Temperature - - Respiratory Rate - - Oxygen Saturation 96% 09/02/2021 9:59 AM CDT Inhaled Oxygen Concentration - - Weight 107.5 kg (237 lb) 04/16/2022 8:50 AM RECYCLABLE MATERIALS SORTER Height 188 cm (6' 2) 09/09/2021 8:41 [...] Final Result from Last 3 Months Insurance [facility] [employer] [facility] [place] [address] MEDICARE [facility] Care Teams Vacuum Cooker Operator Relationship Specialty Start Date End Date Demarcus Colby MD [address] [facility] [address] [place], [place] [id number] PCP - General Family Medicine 05/22/18 Demarcus Guerrero MD [address] [address] Radiation Oncologist Radiation Oncology 09/02/21
[2024-11-01 14:01] VITALS: BP 158/97; PULSE 69; RESP 15; O2SAT 94
[2024-11-01 14:31] VITALS: BP 166/89; PULSE 63; RESP 16; O2SAT 95
--- NOTE | 2024-11-01 15:24 | ED.BACK ---
HPI - Back Pain/Injury General Chief Complaint: Back Pain/Injury Stated Complaint: Lower back pain-radiating to hips-diff walking Time Seen by Provider: 11/01/24 13:17 Source: patient Mode of arrival: ambulatory Limitations: no limitations History of Present Illness HPI Narrative: 69-year-old with history of paroxysmal atrial fibrillation on Eliquis, hypertension here with a complains of low back pain to her right side of the leg for past 3 weeks. He denies any trauma. Patient's who is at the bedside states that they have consulted Dr. Colby for prescribed meloxicam. She also had an outpatient x-ray of the lumbar spine which was unremarkable except may have a phleboliths are kidney stone. He denies any bladder or bowel incontinence. No recent trauma. Related Data Home Medications ?Medication ?Instructions ?Recorded ?Confirmed ?Last Taken ?Type aspirin 325 mg tablet 325 mg PO DAILY 01/05/19 10/19/24 Unknown History metoprolol tartrate 25 mg tablet 50 mg PO DAILY 07/10/19 10/19/24 Unknown History anastrozole 1 mg tablet mg 10/18/24 10/19/24 Unknown History metformin 500 mg tablet,extended mg PO 10/18/24 10/19/24 Unknown History release 24 hr rosuvastatin 5 mg tablet mg 10/18/24 10/19/24 Unknown History triamterene 37.5 cap 10/18/24 10/19/24 Unknown History mg-hydrochlorothiazide 25 mg capsule Allergies Allergy/AdvReac Type Severity Reaction Status Date / Time amoxicillin Allergy Unknown Rash Verified 11/01/24 11:46 rivaroxaban Allergy Unknown Bleeding Verified 11/01/24 11:46 Review of Systems Review of Systems: All systems reviewed & are unremarkable except as noted in HPI and below Constitutional: Constitutional: Reports no additional constitutional complaints Eyes: Eyes: Reports no additional eye complaints ENT: Reports system reviewed and no additional complaints, except as documented Cardiovascular: Cardiovascular: Reports no additional cardiovascular complaints Respiratory: Respiratory: Reports no additional respiratory complaints Gastrointestinal: Gastrointestinal: Reports no additional gastrointestinal complaints Musculoskeletal: Musculoskeletal: Reports as per HPI Neurologic: Reports system reviewed and no additional complaints, except as documented Psychiatric: Psychiatric: Reports no additional psychiatric complaints PMFSH Past Medical History Medical History Anemia Afib Wears glasses Allergic rhinitis Essential (primary) hypertension Pure hypercholesterolemia Surgical History Surgical History S/P ablation operation for arrhythmia Presence of right artificial knee joint Family History Family History Father Malignant neoplasm of prostate Patient's father is in good health Sibling Patient's sister is in good health Patient's brother is in good health Social History Social History Smoking status: Never smoker Second hand tobacco smoke exposure: No Alcohol intake: current Drinks per week: 4 Alcohol use details: socially Substance use: never Substance use type: does not use Living arrangements: with family Occupation/Education: occupation Gender identity (if verbalized by the patient): Male Sexual Orientation (if Verbalized by the Patient): Straight or Heterosexual Spiritual care concerns: No Exam Narrative: GENERAL: Well-appearing, well-nourished, and in no acute distress. HEAD: Normocephalic, atraumatic. EYES: PERRLA and EOMI. ENT: Nares clear, no rhinorrhea or epistaxis. Mucous membranes moist. NECK: Supple. CHEST: Clear to auscultation. No respiratory distress. HEART: Regular rate and rhythm. No murmur heard. Normal peripheral pulses. ABDOMEN: Soft, nontender, nondistended, normal active bowel sounds. EXTREMITIES: Normal range of motion. No edema. SLR negative SKIN: Warm, dry, no rash. NEURO: No focal deficits. Alert and oriented x3. PSYCH: Normal mood and affect. Course Course Emergency Course: CT of the lumbar spine was done which was unremarkable. No obvious disc herniation. I did do inform the patient and his about the CT findings. Recommended him to take steroids consider physical therapy, follow with the primary doctor. He feels comfortable going home. Vital Signs Vital signs: Vital Signs Temperature 36.6 C 11/01/24 11:44 Pulse Rate 65 11/01/24 11:44 Respiratory Rate 16 11/01/24 11:44 Blood Pressure 158/101 H 11/01/24 11:44 Pulse Oximetry 96 11/01/24 11:44 Temperature 36.6 C 11/01/24 11:44 Pulse Rate 63 11/01/24 14:31 Respiratory Rate 16 11/01/24 14:31 Blood Pressure 166/89 H 11/01/24 14:31 Pulse Oximetry 95 11/01/24 14:31 MDM - Back Pain/Injury Differential Diagnosis Differential diagnosis: Likely lumbar radiculopathy, strain of lumbar region and discitis Medical Records Attestation: I reviewed the patient's medical records. Lab Data Attestation: I reviewed the patient's lab results. Imaging Data Radiologist's impression: ITS Impressions Lumbar Spine CT 11/01/24 14:11 IMPRESSION: 1. 12 degrees lumbar levoscoliosis with mild spondylosis. Discharge Plan Discharge Clinical Impression: Low back pain Qualifiers: Chronicity: acute Back pain laterality: unspecified Sciatica presence: without sciatica Qualified Code(s): M54.50 - Low back pain, unspecified Patient Disposition: Home Condition: Stable Instructions: Acute Low Back Pain (ED) Patient Language: Wolof Prescriptions: New hydrocodone-acetaminophen 5-325 mg tablet 1 tablet PO Q8H PRN (Reason: pain) Qty: 20 0RF hydrocodone-acetaminophen 5-325 mg tablet 1 tablet PO Q8H PRN (Reason: pain) Qty: 20 0RF methylprednisolone [Medrol (Kirby)] 4 mg tablets,dose pack See Rx Instructions .ROUTE .COMPLEX Qty: 21 0RF Rx Instructions: orally per package directions No Action anastrozole 1 mg tablet triamterene-hydrochlorothiazid 37.5-25 mg capsule metformin 500 mg tablet extended release 24 hr PO rosuvastatin 5 mg tablet methylprednisolone [Medrol (Kirby)] 4 mg tablets,dose pack See Rx Instructions .ROUTE .COMPLEX Qty: 21 0RF Rx Instructions: orally per package directions aspirin 325 mg tablet 325 mg PO DAILY metoprolol tartrate 25 mg tablet 50 mg PO DAILY atorvastatin [Lipitor] 10 mg tablet 10 mg PO DAILY Qty: 90 1RF meloxicam 15 mg tablet 15 mg PO DAILY Qty: 30 0RF cyclobenzaprine 10 mg tablet 10 mg PO TID PRN (Reason: muscle spasm) Qty: 30 0RF Follow-up/Referrals: Demarcus Colby MD [Primary Care Provider, Family Practice] Time of Disposition: 15:48
[2024-11-01 16:01] VITALS: BP 167/80; PULSE 70; RESP 20; O2SAT 98
== END 2024-11-01 16:02 | disposition home or self-care (01) ==
PROVIDERS: Emergency Provider Family Medicine; PCP Family Medicine
DX: M54.50 Low back pain, unspecified (principal); I48.0 Paroxysmal atrial fibrillation; I10 Essential (primary) hypertension; E78.00 Pure hypercholesterolemia, unspecified; Z86.2 Personal history of diseases of the blood and blood-forming organs and certain disorders involving the immune mechanism; Z79.01 Long term (current) use of anticoagulants; M47.816 Spondylosis without myelopathy or radiculopathy, lumbar region
CPT/HCPCS: 72131; 99284